=== PATIENT | male | born 1945 | race Caucasian/White ===

== ENCOUNTER 2020-09-19 07:40 | Emergency (ER) | payer SELFPAY ==
[~2020-09-19] VITALS: Ht 172.7 cm; Wt 74.6 kg
[~2020-09-19 07:40] MED LIST: BENA20TA5 PO; FINA5TAB4 PO; METF10007 PO; METF500T17 PO; METO-282 PO; SULF-23 PO
--- NOTE | 2020-09-19 07:49 | NUR ---
JUSTIN RN: EDUCATION GIVEN REGARDING YBARRA CATH CLEANING. PT AND FAMILY VERBALIZED UNDERSTANDING
--- NOTE | 2020-09-19 08:38 | NUR ---
will insertd w leg bag. ua walked to lab. education re: will/cleansing. site appears pink, no drainaige noted. will that was removed was not a leg bag will. pt did not follow up w/ urology after will placed 08/12 bc he has insurance issues. registration notified to come help pt w medicare. as
[2020-09-19 08:48] LABS: MICROSCOPIC INDICATED
[2020-09-19] MEDS ORDERED: CEFTRIAXONE 1,000 MG IM ONE (09:00)
[2020-09-19] MEDS ORDERED: CEFTRIAXONE 1,000 MG ONE (09:03)
[2020-09-19 09:58] VITALS: BP 126/79
== END 2020-09-19 10:00 | disposition home or self-care (01) ==
LOC: ED 08:18
DX: R33.9 Retention of urine, unspecified (principal); N39.0 Urinary tract infection, site not specified; I10 Essential (primary) hypertension; E11.9 Type 2 diabetes mellitus without complications; Z87.891 Personal history of nicotine dependence
CPT/HCPCS: 51702; 81001; 87077; 87086; 96372; 99284; J0696; 87186

== ENCOUNTER 2020-10-08 11:43 | Emergency (ER) | payer SELFPAY ==
[~2020-10-08] VITALS: Ht 170.2 cm; Wt 80.0 kg
--- NOTE | 2020-10-08 12:12 | NUR ---
PT TO ROOM 26 W/ COUSIN FOR C/O PT DISCONNECTING YBARRA CATHETER AND WETTING SELF. PT STATES HE HAS NOT URINATED ENOUGH IN THE BAG FOR THE DAY BUT STATES PT WAS WET THIS MORNING. PER COUSIN PT ALSO C/O PENILE PAIN. PER FAMILY HE HAS HAD THAT YBARRA IN FOR 2 MONTHS AND HAS BEEN UNABLE TO F/U W/ UROLOGY YET SECONDARY TO INSURANCE BUT ARE CURRENTLY WORKING W/ SW TO GET PT APPT. PT RESTING ON GURNEY. NADN. MONITORS APPLIED. VSS. WARM BLANKET PROVIDED. CALL LIGHT IN REACH.
--- NOTE | 2020-10-08 12:47 | NUR ---
PT RESTING ON GURNEY. NADN. CHARLES.
--- NOTE | 2020-10-08 13:36 | NUR ---
BLADDER SCANNER SHOWED 39 ML PRIOR TO CHANGING OUT PT YBARRA. NEW YBARRA PLACED. DRAINAGE NOTED. PT GUILLERMINA WELL.
--- NOTE | 2020-10-08 13:40 | NUR ---
PT RESTING ON GURNEY. NADN. CHARLES.
[2020-10-08 14:08] LABS: MICROSCOPIC INDICATED
--- NOTE | 2020-10-08 14:33 | NUR ---
PT CHART REVIEWED AND PLACED FOR RECHECK.
--- NOTE | 2020-10-08 14:33 | NUR ---
PT RESTING ON GURNEY. NADN. CHARLES.
[2020-10-08] MEDS ORDERED: CEFDINIR 300 MG CAPSULE ONE (15:46)
[2020-10-08 15:48] VITALS: BP 129/72
[2020-10-08] MEDS ORDERED: CEFDINIR 300 MG CAPSULE PO ONE (16:00)
[2020-10-08] MEDS ORDERED: CEFTRIAXONE 2 GM in DEXTROSE 5% 50 ML IVPB ONE (16:00)
== END 2020-10-08 16:07 | disposition home or self-care (01) ==
LOC: ED 11:48
DX: N30.00 Acute cystitis without hematuria (principal); I10 Essential (primary) hypertension; E11.9 Type 2 diabetes mellitus without complications
CPT/HCPCS: 51702; 81001; 87077; 87086; 87106; 87186; 99285

== ENCOUNTER 2020-10-15 18:27 | Inpatient (IN) | payer MEDICAID, OTHER ==
[~2020-10-15] VITALS: Ht 172.7 cm; Wt 73.3 kg
--- NOTE | 2020-10-15 18:34 | NUR ---
PT BIB EMS FOR FAILURE TO THRIVE. PT HAS MENTAL DISABILITY. PT LIVES W A COUSIN. PER EMS PT NOT EATING OR DRINKING MUCH. DIARRHEA TODAY. CHRONIC YBARRA SINCE JUNE, CHANGED 3 TIMES SINCE THEN, LAST ABOUT 2 WEEKS AGO. UNSURE TO WHY YBARRA IS PLACED. APPEARS TO BE LEAKING. MUCOUS MEMBRANES DRY, LIPS CRACKED. PT ABLE TO HAVE CONVERATION. SLOW TO ANSWER QUESTIONS. BS 213 BY EMS, IVF, PT TAKE METFORMIN, METOPROLOL AND FINASTRIDE. ON DATA MANAGEMENT SPECIALIST. DENIES PAIN OR CP
--- NOTE | 2020-10-15 18:41 | NUR ---
REPORT FROM SANGEETHA TOUSSAINT
--- NOTE | 2020-10-15 18:44 | NUR ---
REPORT TO MEAGHAN
[2020-10-15 19:26] LABS: BASOPHILS % (AUTO) 0 % (0-1); EOSINOPHILS % (AUTO) 0 % (1-7); LYMPHOCYTES % (AUTO) 25 % (22-44); MEAN CORPUSCULAR HEMOGLOBIN 30.5 pg (27.5-34.5); MEAN PLATELET VOLUME 8.9 fL (7.4-10.4); MONOCYTES % (AUTO) 7 % (2-9); NEUTROPHILS % (AUTO) 67 % (42-75); PLATELET COUNT 270 x10^3/uL (130-400); RED BLOOD COUNT 5.08 x10^6/uL (4.38-5.82); RED CELL DISTRIBUTION WIDTH 14.9 % (9.4-14.8)
[2020-10-15] MEDS ORDERED: SODIUM CHLORIDE FLUSH 10ML SYR IVF ONE (19:30)
[2020-10-15 19:34] LABS: ALANINE AMINOTRANSFERASE 21 U/L (12-78); ALBUMIN 3.5 g/dL (3.4-5.0); ANION GAP 9 mmol/L (5-15); CALCIUM 9.1 mg/dL (8.5-10.1); CHLORIDE 106 mmol/L (98-107)
[2020-10-15 19:36] LABS: MICROSCOPIC INDICATED
[2020-10-15 19:37] LABS: ALKALINE PHOSPHATASE 99 U/L (45-117); BILIRUBIN,TOTAL 0.4 mg/dL (0.2-1.0); CREATININE 1.71 mg/dL (0.7-1.3); TOTAL PROTEIN 7.4 g/dL (6.4-8.2)
--- NOTE | 2020-10-15 19:40 | NUR ---
YBARRA CATH REMOVED PER ERP ORDER. NEW CATH INSERTION PER ERP ORDER. AREA CLEANSED PER POLICY. PT TOLERATED PROCEDURE WELL. YELLOW PURULENT URINE DRAINING FROM CATH. PT DENIES ANY NEEDS AT THIS TIME. CALL LIGHT AND PERSONAL BELONGINGS WITHIN REACH.
[2020-10-15] MEDS ORDERED: CEFD300C37 PO (20:08)
[2020-10-15] MEDS ORDERED: SODIUM CHLORIDE 0.9% 1,000ML IVBOLUS ONE (20:30)
[2020-10-15] MEDS ORDERED: CEFTRIAXONE 1,000 MG in DEXTROSE 5% 50 ML IVPB ONE (20:30)
--- NOTE | 2020-10-15 22:00 | NUR ---
HOSPITALIST AT BEDSIDE
[2020-10-15] MEDS: SODIUM CHLORIDE 0.9% 1,000 ML IV SCH (22:30)
[2020-10-15] MEDS ORDERED: DEXTROSE 4 GM TAB.CHEW PO PRN (22:30)
[2020-10-15] MEDS ORDERED: ACETAMINOPHEN 325 MG TABLET PO PRN (22:30)
[2020-10-15] MEDS ORDERED: BISACODYL 10 MG SUPP PR PRN (22:30)
[2020-10-15] MEDS: INSULIN LISPRO 100 UNITS/ML, PEN SQ-INSULIN SCH (22:30)
[2020-10-15] MEDS ORDERED: PHARMACY MAY ADJ FOR RENAL FX MC PRN (22:30)
[2020-10-15] MEDS ORDERED: GLUCAGON 1 MG IM PRN (22:30)
[2020-10-15] MEDS ORDERED: ONDANSETRON ODT 4 MG PO PRN (22:30)
[2020-10-15] MEDS ORDERED: LABETALOL 5MG/ML, 20ML IVPush PRN (22:30)
[2020-10-15] MEDS ORDERED: hydrALAzine 20 MG/ML, 1ML IVPush PRN (22:30)
[2020-10-15] MEDS ORDERED: ONDANSETRON 2MG/ML, 2ML IVPush PRN (22:30)
[2020-10-15] MEDS ORDERED: DEXTROSE 50%, 50ML SYRINGE IVPush PRN (22:30)
[2020-10-15] MEDS ORDERED: DOCUSATE 100 MG CAPSULE PO PRN (22:30)
--- NOTE | 2020-10-15 22:43 | NUR ---
Pt to be admitted to MEDICAL, room 375. Report called to Rosemarie
[2020-10-15 23:08] VITALS: BP 110/71
[2020-10-15] MEDS: FLUCONAZOLE 200 MG TABLET PO SCH (23:53)
[2020-10-15] MEDS: HEPARIN 5,000 UNITS/ML, 1ML SQ SCH (23:53)
[2020-10-16 00:25] VITALS: BP 110/71
[2020-10-16] MEDS: HEPARIN 5,000 UNITS/ML, 1ML SQ SCH ×3 (05:45→20:37)
[2020-10-16] MEDS: SODIUM CHLORIDE 0.9% 1,000 ML IV SCH ×3 (05:45→20:37)
[2020-10-16 06:15] LABS: MEAN CORPUSCULAR HEMOGLOBIN 30.6 pg (27.5-34.5); MEAN CORPUSCULAR HGB CONC 33.7 g/dL (33.2-36.2); MEAN PLATELET VOLUME 8.9 fL (7.4-10.4); PLATELET COUNT 227 x10^3/uL (130-400); RED BLOOD COUNT 4.47 x10^6/uL (4.38-5.82); RED CELL DISTRIBUTION WIDTH 14.5 % (9.4-14.8)
[2020-10-16 06:19] LABS: CHLORIDE 111 mmol/L (98-107)
[2020-10-16 06:25] LABS: ANION GAP 6 mmol/L (5-15); CALCIUM 8.2 mg/dL (8.5-10.1); CREATININE 1.32 mg/dL (0.7-1.3)
[2020-10-16] MEDS: INSULIN LISPRO 100 UNITS/ML, PEN SQ-INSULIN SCH ×4 (07:00→21:14)
[2020-10-16 07:28] VITALS: BP 130/67
[2020-10-16 07:55] LABS: LYMPH#(MANUAL) 7.04 x10^3/uL (1-3.4); LYMPHS% (MANUAL) 51 % (22-44); MONOS#(MANUAL) 1.38 x10^3/uL (0.3-2.7); MONOS% (MANUAL) 10 % (2-9); SEG#(MANUAL) 5.38 x10^3/uL (1.8-6.8)
[2020-10-16 07:56] LABS: <PLATELET ESTIMATE> ADEQUATE; <PLT MORPHOLOGY> NORMAL PLT MORPH; <RBC MORPHOLOGY> NORMAL; SMUDGE CELLS 1+
[2020-10-16 07:57] LABS: SEGS% (MANUAL) 39 % (42-75)
[2020-10-16] MEDS: METOPROLOL SUCCINATE 25 MG TAB.ER.24H PO SCH (08:35)
[2020-10-16] MEDS: FLUCONAZOLE 200 MG TABLET PO SCH (08:35)
[2020-10-16] MEDS: SODIUM CHLORIDE FLUSH 10ML SYR IVF SCH ×2 (08:35→20:39)
[2020-10-16 13:25] VITALS: BP 106/66
[2020-10-16] MEDS: CEFTRIAXONE 1,000 MG in DEXTROSE 5% 50 ML IVPB SCH (19:30)
[2020-10-16 19:32] VITALS: BP 107/61
[2020-10-17 00:19] VITALS: BP 132/79
[2020-10-17 05:22] LABS: MEAN CORPUSCULAR HEMOGLOBIN 30.7 pg (27.5-34.5); MEAN CORPUSCULAR HGB CONC 33.6 g/dL (33.2-36.2); MEAN PLATELET VOLUME 8.8 fL (7.4-10.4); PLATELET COUNT 220 x10^3/uL (130-400); RED BLOOD COUNT 4.35 x10^6/uL (4.38-5.82)
[2020-10-17 05:31] LABS: ANION GAP 4 mmol/L (5-15); CHLORIDE 111 mmol/L (98-107); CREATININE 1.23 mg/dL (0.7-1.3)
[2020-10-17] MEDS: HEPARIN 5,000 UNITS/ML, 1ML SQ SCH ×3 (05:34→22:23)
[2020-10-17 06:24] LABS: BASOS#(MANUAL) 0.12 x10^3/uL (0-0.1); BASOS% (MANUAL) 1 % (0-1); LYMPH#(MANUAL) 7.55 x10^3/uL (1-3.4); LYMPHS% (MANUAL) 64 % (22-44); MONOS#(MANUAL) 0.35 x10^3/uL (0.3-2.7); MONOS% (MANUAL) 3 % (2-9); REACTIVE LYMPHS # (MANUAL) 0.12 x10^3/uL (0-0); REACTIVE LYMPHS % (MANUAL) 1 % (0-0); SEG#(MANUAL) 3.66 x10^3/uL (1.8-6.8); SEGS% (MANUAL) 31 % (42-75)
[2020-10-17 06:25] LABS: <RBC MORPHOLOGY> NORMAL; SMUDGE CELLS 1+
[2020-10-17 06:26] LABS: <PLATELET ESTIMATE> ADEQUATE; <PLT MORPHOLOGY> NORMAL PLT MORPH
[2020-10-17] MEDS: INSULIN LISPRO 100 UNITS/ML, PEN SQ-INSULIN SCH ×4 (07:00→20:21)
[2020-10-17 07:35] VITALS: BP 144/77
[2020-10-17] MEDS: FLUCONAZOLE 200 MG TABLET PO SCH (08:58)
[2020-10-17] MEDS: SODIUM CHLORIDE FLUSH 10ML SYR IVF SCH ×2 (08:59→20:13)
[2020-10-17] MEDS: METOPROLOL SUCCINATE 25 MG TAB.ER.24H PO SCH (08:59)
[2020-10-17] MEDS: SODIUM CHLORIDE 0.9% 1,000 ML IV SCH (08:59)
[2020-10-17 13:53] VITALS: BP 110/64
[2020-10-17] MEDS: CEFTRIAXONE 1,000 MG in DEXTROSE 5% 50 ML IVPB SCH (20:13)
[2020-10-17 21:58] VITALS: BP 149/88
[2020-10-18 01:08] VITALS: BP 152/84
[2020-10-18 05:05] LABS: BASOPHILS % (AUTO) 1 % (0-1); EOSINOPHILS % (AUTO) 1 % (1-7); LYMPHOCYTES % (AUTO) 48 % (22-44); MEAN CORPUSCULAR HEMOGLOBIN 31.1 pg (27.5-34.5); MEAN CORPUSCULAR HGB CONC 34.3 g/dL (33.2-36.2); MEAN PLATELET VOLUME 8.9 fL (7.4-10.4); MONOCYTES % (AUTO) 7 % (2-9); NEUTROPHILS % (AUTO) 42 % (42-75); PLATELET COUNT 237 x10^3/uL (130-400); RED BLOOD COUNT 4.71 x10^6/uL (4.38-5.82); RED CELL DISTRIBUTION WIDTH 14.7 % (9.4-14.8)
[2020-10-18 05:07] LABS: ANION GAP 3 mmol/L (5-15); CALCIUM 8.3 mg/dL (8.5-10.1); CHLORIDE 110 mmol/L (98-107); CREATININE 1.28 mg/dL (0.7-1.3)
[2020-10-18] MEDS: SODIUM CHLORIDE 0.9% 1,000 ML IV SCH ×2 (05:30→19:54)
[2020-10-18] MEDS: HEPARIN 5,000 UNITS/ML, 1ML SQ SCH ×3 (05:30→22:21)
[2020-10-18] MEDS: SODIUM CHLORIDE FLUSH 10ML SYR IVF SCH ×2 (09:00→20:06)
[2020-10-18 09:30] VITALS: BP 142/73
[2020-10-18] MEDS: METOPROLOL SUCCINATE 25 MG TAB.ER.24H PO SCH (09:51)
[2020-10-18] MEDS: FLUCONAZOLE 200 MG TABLET PO SCH (09:51)
[2020-10-18] MEDS: INSULIN LISPRO 100 UNITS/ML, PEN SQ-INSULIN SCH ×4 (09:51→20:07)
[2020-10-18 13:12] VITALS: BP 154/90
[2020-10-18] MEDS: CEFTRIAXONE 1,000 MG in DEXTROSE 5% 50 ML IVPB SCH (19:54)
[2020-10-18 21:01] VITALS: BP 173/92
[2020-10-19 00:45] VITALS: BP 162/83
[2020-10-19] MEDS: SODIUM CHLORIDE 0.9% 1,000 ML IV SCH ×2 (04:59→18:43)
[2020-10-19 06:01] LABS: MEAN CORPUSCULAR HEMOGLOBIN 30.2 pg (27.5-34.5); MEAN CORPUSCULAR HGB CONC 33.2 g/dL (33.2-36.2); MEAN PLATELET VOLUME 8.9 fL (7.4-10.4); PLATELET COUNT 240 x10^3/uL (130-400); RED BLOOD COUNT 4.54 x10^6/uL (4.38-5.82); RED CELL DISTRIBUTION WIDTH 14.9 % (9.4-14.8)
[2020-10-19 06:15] LABS: ANION GAP 4 mmol/L (5-15); CALCIUM 8.1 mg/dL (8.5-10.1); CHLORIDE 110 mmol/L (98-107)
[2020-10-19 06:17] LABS: CREATININE 1.16 mg/dL (0.7-1.3)
[2020-10-19] MEDS: HEPARIN 5,000 UNITS/ML, 1ML SQ SCH ×2 (06:22→18:42)
[2020-10-19 06:37] LABS: BASOS#(MANUAL) 0.13 x10^3/uL (0-0.1); BASOS% (MANUAL) 1 % (0-1); EOS#(MANUAL) 0.25 x10^3/uL (0.0-0.4); EOS% (MANUAL) 2 % (1-7); LYMPH#(MANUAL) 6.86 x10^3/uL (1-3.4); LYMPHS% (MANUAL) 54 % (22-44); MONOS#(MANUAL) 0.38 x10^3/uL (0.3-2.7); MONOS% (MANUAL) 3 % (2-9); SEG#(MANUAL) 5.08 x10^3/uL (1.8-6.8); SEGS% (MANUAL) 40 % (42-75)
[2020-10-19 06:38] LABS: <PLATELET ESTIMATE> ADEQUATE; <PLT MORPHOLOGY> NORMAL PLT MORPH; <RBC MORPHOLOGY> NORMAL
[2020-10-19 06:39] LABS: SMUDGE CELLS 1+
[2020-10-19] MEDS: INSULIN LISPRO 100 UNITS/ML, PEN SQ-INSULIN SCH ×4 (07:00→20:00)
[2020-10-19 07:27] VITALS: BP 149/79
[2020-10-19] MEDS: METOPROLOL SUCCINATE 25 MG TAB.ER.24H PO SCH (09:13)
[2020-10-19] MEDS: FLUCONAZOLE 200 MG TABLET PO SCH (09:13)
[2020-10-19] MEDS: SODIUM CHLORIDE FLUSH 10ML SYR IVF SCH ×2 (09:13→20:00)
[2020-10-19 12:55] VITALS: BP 154/77
[2020-10-19 18:34] VITALS: BP 147/87
[2020-10-19] MEDS: CEFTRIAXONE 1,000 MG in DEXTROSE 5% 50 ML IVPB SCH (19:59)
[2020-10-19] MEDS: POLYETHYLENE GLYCOL 17 GM PACKET PO PRN (20:00)
[2020-10-20 01:55] VITALS: BP 156/88
[2020-10-20] MEDS: HEPARIN 5,000 UNITS/ML, 1ML SQ SCH ×2 (03:08→11:19)
[2020-10-20] MEDS: SODIUM CHLORIDE 0.9% 1,000 ML IV SCH ×2 (05:20→18:36)
[2020-10-20 06:05] LABS: MEAN CORPUSCULAR HEMOGLOBIN 30.8 pg (27.5-34.5); MEAN CORPUSCULAR HGB CONC 33.7 g/dL (33.2-36.2); MEAN PLATELET VOLUME 8.7 fL (7.4-10.4); PLATELET COUNT 247 x10^3/uL (130-400); RED BLOOD COUNT 4.68 x10^6/uL (4.38-5.82); RED CELL DISTRIBUTION WIDTH 14.9 % (9.4-14.8)
[2020-10-20 06:34] VITALS: BP 156/87
[2020-10-20 06:39] LABS: ANION GAP 5 mmol/L (5-15); CALCIUM 8.6 mg/dL (8.5-10.1); CHLORIDE 109 mmol/L (98-107); CREATININE 1.11 mg/dL (0.7-1.3)
[2020-10-20 06:53] LABS: EOS#(MANUAL) 0.58 x10^3/uL (0.0-0.4); EOS% (MANUAL) 4 % (1-7); LYMPH#(MANUAL) 8.47 x10^3/uL (1-3.4); LYMPHS% (MANUAL) 58 % (22-44); MONOS#(MANUAL) 0.44 x10^3/uL (0.3-2.7); MONOS% (MANUAL) 3 % (2-9); SEG#(MANUAL) 5.11 x10^3/uL (1.8-6.8)
[2020-10-20] MEDS: INSULIN LISPRO 100 UNITS/ML, PEN SQ-INSULIN SCH ×3 (07:00→16:23)
[2020-10-20 07:03] LABS: <PLATELET ESTIMATE> ADEQUATE; <PLT MORPHOLOGY> NORMAL PLT MORPH; <RBC MORPHOLOGY> NORMAL; SEGS% (MANUAL) 35 % (42-75); SMUDGE CELLS 1+
[2020-10-20] MEDS: METOPROLOL SUCCINATE 25 MG TAB.ER.24H PO SCH (07:48)
[2020-10-20] MEDS: FLUCONAZOLE 200 MG TABLET PO SCH (07:48)
[2020-10-20] MEDS: SODIUM CHLORIDE FLUSH 10ML SYR IVF SCH (07:49)
[2020-10-20 14:35] VITALS: BP 196/95
[2020-10-20] MEDS: POLYETHYLENE GLYCOL 17 GM PACKET PO PRN (16:12)
[2020-10-20] MEDS ORDERED: FLUC200T PO (16:54)
[2020-10-20] MEDS ORDERED: CEFD300C37 PO (16:54)
== END 2020-10-20 18:36 | disposition home or self-care (01) | DRG 720 ==
LOC: ED 21:04 → EDIP 21:43 → 3N 23:06
PROVIDERS: ADMIT Family Medicine; ATTEND Family Medicine
PROC: 0T9B70Z Drainage of Bladder with Drainage Device, Via Natural or Artificial Opening (ICD-10-PCS; principal; 2020-10-15)
DX: A41.9 Sepsis, unspecified organism (principal); N17.9 Acute kidney failure, unspecified; E87.2 Acidosis; E11.22 Type 2 diabetes mellitus with diabetic chronic kidney disease; E11.65 Type 2 diabetes mellitus with hyperglycemia; E86.0 Dehydration; E87.1 Hypo-osmolality and hyponatremia; I12.9 Hypertensive chronic kidney disease with stage 1 through stage 4 chronic kidney disease, or unspecified chronic kidney disease; N13.8 Other obstructive and reflux uropathy; N18.9 Chronic kidney disease, unspecified; N30.91 Cystitis, unspecified with hematuria; N40.1 Benign prostatic hyperplasia with lower urinary tract symptoms; R62.7 Adult failure to thrive; R65.20 Severe sepsis without septic shock; Z87.891 Personal history of nicotine dependence; Z79.899 Other long term (current) drug therapy; Z88.0 Allergy status to penicillin
CPT/HCPCS: 36415; 71045; 76770; 80048; 80053; 81001; 82962; 83605; 83735; 84100; 84145; 85025; 87040; 87086; 87106; 93005; 96365; 96366; G0378; J0696; J1644; J1815; J7030

== ENCOUNTER 2020-12-08 07:46 | Inpatient (IN) | payer MEDICAID, MEDICARE ==
[~2020-12-08] VITALS: Ht 172.7 cm; Wt 73.1 kg
[~2020-12-08 07:46] MED LIST changes: +CEFD300C37 PO; +FLUC200T PO
[2020-12-08] MEDS ORDERED: SODIUM CHLORIDE 0.9% 1,000ML IVBOLUS ONE (09:00)
[2020-12-08 09:01] LABS: BASOPHILS % (AUTO) 1 % (0-1); EOSINOPHILS % (AUTO) 2 % (1-7); LYMPHOCYTES % (AUTO) 36 % (22-44); MEAN CORPUSCULAR HEMOGLOBIN 30.1 pg (27.5-34.5); MEAN CORPUSCULAR HGB CONC 33.2 g/dL (33.2-36.2); MEAN PLATELET VOLUME 8.4 fL (7.4-10.4); MONOCYTES % (AUTO) 7 % (2-9); NEUTROPHILS % (AUTO) 54 % (42-75); PLATELET COUNT 336 x10^3/uL (130-400); RED CELL DISTRIBUTION WIDTH 13.9 % (9.4-14.8)
--- NOTE | 2020-12-08 09:02 | NUR ---
PT UPRIGHT ON GURNEY AWAKE & COMFORTABLE AFTER YBARRA REINSERTION- DRAINING TO GRAVITY (750ML IMMEDIATE UOP- SAMPLE SENT TO LAB), VERY [place] BUT RESPONDS TO STAFF QUESTIONS, NAD, COMFORT MEASURES PROVIDED, COUSIN/KEYMODULE ASSEMBLY MACHINE TENDER AT BS, CALL LIGHT WITHIN REACH.
[2020-12-08 09:17] LABS: ALBUMIN 3.5 g/dL (3.4-5.0); ANION GAP 5 mmol/L (5-15); CALCIUM 9.3 mg/dL (8.5-10.1); CHLORIDE 105 mmol/L (98-107); CREATININE 1.87 mg/dL (0.7-1.3)
--- NOTE | 2020-12-08 10:03 | NUR ---
PT UPRIGHT ON GURNEY AWAKE & COMFORTABLE, VERY [place] BUT RESPONDS TO STAFF QUESTIONS, JAME, AMADA DRAINING TO GRAVITY, COMFORT MEASURES PROVIDED, COUSIN/GREENSKEEPER AT BS, CALL LIGHT WITHIN REACH.
[2020-12-08 10:15] LABS: MICROSCOPIC INDICATED
--- NOTE | 2020-12-08 10:54 | NUR ---
REPORT GIVEN TO RADHA TOUSSAINT.
[2020-12-08] MEDS ORDERED: CEFTRIAXONE 1,000 MG IM ONE (11:00)
[2020-12-08] MEDS ORDERED: TAMSULOSIN 0.4 MG CAP.ER.24H PO ONE (12:00)
[2020-12-08] MEDS: FINASTERIDE 5 MG TABLET PO SCH (12:00)
[2020-12-08] MEDS ORDERED: hydrALAzine 20 MG/ML, 1ML IV PRN (12:00)
[2020-12-08] MEDS ORDERED: ONDANSETRON 2MG/ML, 2ML IVPush PRN (12:30)
[2020-12-08] MEDS ORDERED: ONDANSETRON ODT 4 MG PO PRN (12:30)
[2020-12-08] MEDS ORDERED: TRAZODONE 50MG TABLET PO PRN (12:30)
[2020-12-08] MEDS ORDERED: POLYETHYLENE GLYCOL 17 GM PACKET PO PRN (12:30)
[2020-12-08] MEDS ORDERED: MELATONIN 5 MG TABLET PO PRN (12:30)
[2020-12-08] MEDS: SODIUM CHLORIDE 0.9% 1,000 ML IV SCH ×2 (14:11→19:59)
[2020-12-08] MEDS: HEPARIN 5,000 UNITS/ML, 1ML SQ SCH ×2 (14:11→20:11)
[2020-12-08 14:15] VITALS: BP 126/75
[2020-12-08] MEDS: METOPROLOL SUCCINATE 25 MG TAB.ER.24H PO SCH (14:22)
[2020-12-08] MEDS: INSULIN LISPRO 100 UNITS/ML, PEN SQ-INSULIN SCH ×2 (16:00→20:11)
[2020-12-08 18:42] VITALS: BP 107/68
[2020-12-09 00:15] VITALS: BP 100/60
[2020-12-09] MEDS: SODIUM CHLORIDE 0.9% 1,000 ML IV SCH ×3 (02:18→18:00)
[2020-12-09] MEDS: HEPARIN 5,000 UNITS/ML, 1ML SQ SCH ×3 (04:22→20:29)
[2020-12-09 05:51] LABS: BASOPHILS % (AUTO) 0 % (0-1); EOSINOPHILS % (AUTO) 2 % (1-7); LYMPHOCYTES % (AUTO) 35 % (22-44); MEAN CORPUSCULAR HEMOGLOBIN 30.3 pg (27.5-34.5); MEAN CORPUSCULAR HGB CONC 33.2 g/dL (33.2-36.2); MEAN PLATELET VOLUME 8.8 fL (7.4-10.4); MONOCYTES % (AUTO) 7 % (2-9); NEUTROPHILS % (AUTO) 56 % (42-75); PLATELET COUNT 263 x10^3/uL (130-400); RED BLOOD COUNT 4.14 x10^6/uL (4.38-5.82)
[2020-12-09 06:00] LABS: ANION GAP 8 mmol/L (5-15); CALCIUM 7.8 mg/dL (8.5-10.1); CHLORIDE 110 mmol/L (98-107); CREATININE 1.09 mg/dL (0.7-1.3)
[2020-12-09] MEDS: INSULIN LISPRO 100 UNITS/ML, PEN SQ-INSULIN SCH ×4 (07:00→20:30)
[2020-12-09 07:13] VITALS: BP 124/72
[2020-12-09] MEDS: SENNA/DOCUSATE TABLET PO SCH (07:44)
[2020-12-09] MEDS: FINASTERIDE 5 MG TABLET PO SCH (07:44)
[2020-12-09] MEDS: METOPROLOL SUCCINATE 25 MG TAB.ER.24H PO SCH (07:44)
[2020-12-09] MEDS: CEFTRIAXONE 1,000 MG in DEXTROSE 5% 50 ML IVPB SCH (11:03)
[2020-12-09 12:19] VITALS: BP 117/71
[2020-12-09 18:21] VITALS: BP 162/81
[2020-12-10 00:09] VITALS: BP 159/74
[2020-12-10] MEDS: SODIUM CHLORIDE 0.9% 1,000 ML IV SCH ×3 (01:28→16:40)
[2020-12-10] MEDS: HEPARIN 5,000 UNITS/ML, 1ML SQ SCH ×2 (04:50→12:58)
[2020-12-10 06:59] VITALS: BP 144/73
[2020-12-10] MEDS: SENNA/DOCUSATE TABLET PO SCH (07:38)
[2020-12-10] MEDS: METOPROLOL SUCCINATE 25 MG TAB.ER.24H PO SCH (07:38)
[2020-12-10] MEDS: FINASTERIDE 5 MG TABLET PO SCH (07:38)
[2020-12-10] MEDS: INSULIN LISPRO 100 UNITS/ML, PEN SQ-INSULIN SCH ×3 (07:39→16:51)
[2020-12-10] MEDS: CEFTRIAXONE 1,000 MG in DEXTROSE 5% 50 ML IVPB SCH (11:00)
[2020-12-10 13:28] VITALS: BP 151/78
[2020-12-10] MEDS ORDERED: CIPR250T27 PO (15:37)
[2020-12-10] MEDS ORDERED: TAMS-11 PO (15:37)
[2020-12-11] MEDS ORDERED: BENAZEPRIL 20 MG TABLET PO SCH (09:00)
[2020-12-11] MEDS ORDERED: TAMSULOSIN 0.4 MG CAP.ER.24H PO SCH (09:00)
== END 2020-12-10 18:07 | disposition home or self-care (01) | DRG 720 ==
LOC: ED 08:00 → 3N 11:19 → SUATTDRO 11:56 → 3N 12:22
PROVIDERS: ADMIT Internal Medicine; ATTEND Internal Medicine
PROC: 0T9B70Z Drainage of Bladder with Drainage Device, Via Natural or Artificial Opening (ICD-10-PCS; principal; 2020-12-08)
DX: A41.9 Sepsis, unspecified organism (principal); T83.518A Infection and inflammatory reaction due to other urinary catheter, initial encounter; E11.9 Type 2 diabetes mellitus without complications; N39.0 Urinary tract infection, site not specified; E86.0 Dehydration; H54.8 Legal blindness, as defined in USA; I10 Essential (primary) hypertension; N28.9 Disorder of kidney and ureter, unspecified; N32.0 Bladder-neck obstruction; N40.0 Benign prostatic hyperplasia without lower urinary tract symptoms; Y84.6 Urinary catheterization as the cause of abnormal reaction of the patient, or of later complication, without mention of misadventure at the time of the procedure; R62.50 Unspecified lack of expected normal physiological development in childhood; Z88.0 Allergy status to penicillin; Z82.49 Family history of ischemic heart disease and other diseases of the circulatory system; Z83.3 Family history of diabetes mellitus
CPT/HCPCS: 36415; 80048; 81001; 82040; 82962; 83605; 84145; 85025; 87040; 87077; 87086; 87106; 87186; 96360; 96372; 99291; G0378; J0696; J1644; J1815; J7030